=== PATIENT | female | born 1960 | race Caucasian/White ===

== ENCOUNTER 2023-08-10 10:05 | Day surgery (SDC) | payer BC, OTHER ==
[2023-08-10] MEDS ORDERED: Lactated Ringers 1,000 ML IV ONE ×2 (10:13→12:37)
[2023-08-10] MEDS: Lactated Ringers 1,000 ML IV SCH (10:17)
[2023-08-10 10:43] VITALS: RESP 18
[2023-08-10] MEDS ORDERED: Versed 2 MG/2 ML Injection ONE (11:49)
[2023-08-10] MEDS ORDERED: DIPRIVAN 200 MG/20 ML IV ONE ×3 (11:49→12:30)
[2023-08-10 13:34] VITALS: O2SAT 97
[2023-08-10 13:54] VITALS: BP 138/85; PULSE 82; TEMP 97.2
--- NOTE | 2023-08-19 08:59 | OP ---
PROCEDURE DATE/TIME: 08/10/2023 1149 PREOPERATIVE DIAGNOSIS: Screening/surveillance colonoscopy. POSTOPERATIVE DIAGNOSIS: Multiple colorectal polyps, diverticulosis with focal diverticulitis. PROCEDURE: Colonoscopy. PROCEDURE PERFORMED BY: Samantha Mendoza M.D. COMPLICATIONS: None. ESTIMATED BLOOD LOSS: Minimal. ANESTHESIA: MAC. SPECIMEN: Semi-sessile cecal polyp, cecal polyp, lipomatous mass (ascending colon), hepatic flexure polyp, additional hepatic flexure polyps x2 and rectal polyp. HISTORY: This is a 63-year-old patient who presents for screening/surveillance colonoscopy. Risks, benefits and alternatives have been discussed with her in detail preoperatively. She understands the procedure, the risks, benefits and alternatives and would like to proceed. All of her questions were answered to her satisfaction. She has underwent a bowel prep and did well with it. DESCRIPTION OF PROCEDURE: She was then brought back to the endoscopy suite, laid in the left lateral decubitus position. A complete time out was performed. First a rectal exam was done. I did not palpate or see any visible masses or any findings of concern here. The scope was then gently inserted and advanced to the level of the cecum. The patient does have diverticulosis and in the cecum polyps were identified. I also identified the appendiceal orifice as well as ileocecal valve. We then irrigated. Overall her prep was satisfactory. She did have some stool in the colon and we visualized at least 90% of the mucosa but very small or flat lesions could be missed due to imperfect prep. The polyps were identified and removed as follows: A semi-sessile cecal polyp approximately 1 cm was removed with a cold snare and cold biopsy forceps in entirety and sent to pathology. A semi-pedunculated 3 mm cecal polyp was removed with hot biopsy forceps, an ascending colon lipomatous mass that was about 1.5 to 2 cm that looked very soft and consistent with a lipoma was attempted to be biopsied biopsying the overlying mucosa. The overlying mucosa looked normal and again this felt very soft and looks benign. There was a hepatic flexure semi-pedunculated polyp approximately 5 mm and a second polyp that was similar approximately 5 mm both taken with cold snare. There were two additional hepatic flexures that were smaller about 2 to 3 mm taken in entirety with cold biopsy forceps and then there was a semi-pedunculated rectal polyp about 6 x 8 mm taken with cold snare. All sites were resected in entirety. Everything was hemostatic. The patient tolerated the procedure very well. There were no immediate complications. I have reviewed all the sites and I am happy with the excision here. Please note that as we withdrew the scope, we did notice that one of the diverticula appeared to be inflamed this looked to be focal at one diverticula site. I did discuss this with the patient postoperatively. She is not having any pain but we did decide to place her on antibiotics due to the focal acute diverticulitis that was noted. Other than this, there were no other findings on the colonoscopy except as noted. The patient tolerated the procedure very well. There were no immediate complications. She will be following up with me as an outpatient. Colonoscopy interval to be determined with final pathology.
== END 2023-08-10 14:25 | disposition home or self-care (01) ==
LOC: SDC 10:05
PROVIDERS: ATTEND Surgery
DX: Z12.11 Encounter for screening for malignant neoplasm of colon (principal); K57.30 Diverticulosis of large intestine without perforation or abscess without bleeding; E11.9 Type 2 diabetes mellitus without complications; D12.7 Benign neoplasm of rectosigmoid junction; D12.0 Benign neoplasm of cecum; D12.3 Benign neoplasm of transverse colon
CPT/HCPCS: 82947; J2250; J2704

== ENCOUNTER 2024-03-14 09:52 | Day surgery (SDC) | payer BC ==
[~2024-03-14 09:52] MED LIST: Lactated Ringers 1,000 ML IV ONE
[2024-03-14] MEDS: Lactated Ringers 1,000 ML IV SCH (09:55)
[2024-03-14 10:15] VITALS: RESP 18
[2024-03-14] MEDS ORDERED: Xylocaine-Mpf 2% 5 Ml Vial ONE (12:15)
[2024-03-14] MEDS ORDERED: DIPRIVAN 200 MG/20 ML IV ONE ×3 (12:16→13:30)
[2024-03-14 14:04] VITALS: O2SAT 95
[2024-03-14 14:08] VITALS: BP 122/77; PULSE 79; TEMP 97
--- NOTE | 2024-03-17 12:19 | OP ---
SURGERY DATE/TIME: 03/14/2024 [id number] PREOPERATIVE DIAGNOSIS: Irregular sessile cecal polyp at last colonoscopy. POSTOPERATIVE DIAGNOSES: 1) No regrowth of sessile polyp. 2) Additional polyps identified below. 3) Diverticulosis. 4) Minimal hemorrhoidal disease. 5) Ascending colon lipoma. PROCEDURE: Colonoscopy with cold forceps polypectomy of appendiceal orifice and hot forceps of hepatic flexure polyp; and biopsy, ascending colon lipoma. SURGEON: Samantha Mendoza MD ANESTHESIA: MAC. ESTIMATED BLOOD LOSS: Minimal. COMPLICATIONS: None. SPECIMENS: Appendiceal orifice polyp, hepatic flexure polyp, ascending lipoma. INDICATIONS: This is a patient who presents after having a piecemeal polypectomy of a semi-sessile polyp in the cecum that had an irregular border, and she is here for short interval surveillance. Her H and P and consent have been reviewed with her and confirmed. She understands the risks, benefits, and alternatives to the procedure. She has done her prep, and she would like to proceed. All questions have been answered to her satisfaction. DESCRIPTION OF PROCEDURE AND FINDINGS: She was then brought back to the endoscopy suite, laid in the left lateral decubitus position. A complete time-out was performed. First, a rectal inspection and then a rectal exam was done. She does have mild hemorrhoidal disease. The scope was then inserted and gently advanced to the level of the cecum. In the cecum, the appendiceal orifice and the ileocecal valve were both identified. Overall, the prep was satisfactory. In the cecum, I did not see any residual polyp or scar. She did have a very tiny, subtle raised polypoid area right at the appendiceal orifice which we removed completely with the forceps and sent to Pathology. No other concerning findings in the cecum and no sign of regrowth, and at this time, we then carefully withdrew the scope, taking a good circumferential look. She has a known lipoma in the ascending colon. I was able to take a nice biopsy of this. This does look lipomatous, and it is stable in size. It is about 1 x 1.5 to 2 cm in size. It is not obstructing, and it looks very soft and benign. The overlying mucosa looks normal. On biopsy, it does appear to be fatty deep within, and it is very soft. This was hemostatic, the polypectomy site was hemostatic, and then we continued to withdraw our scope. I did identify 1 additional small polyp. This is about 2 to 3 mm in the hepatic flexure, taken in entirety with hot forceps and sent to Pathology. Outside of this, there were no other polyps identified. She does have diverticulosis which is most prominent in the sigmoid colon, but this extends throughout the left colon and even into the transverse colon as well with multiple pockets, and then the scope was able to be completely removed. The patient tolerated the procedure well. No immediate complications. We will await her pathology report and plan for another colonoscopy in 3 years. I have discussed her findings with her nurses as well postoperatively, and she will be seeing me as an outpatient.
== END 2024-03-14 14:20 | disposition home or self-care (01) ==
LOC: SDC 09:52
PROVIDERS: ATTEND Surgery
DX: Z12.11 Encounter for screening for malignant neoplasm of colon (principal); E11.9 Type 2 diabetes mellitus without complications; K62.1 Rectal polyp; D12.1 Benign neoplasm of appendix; D12.2 Benign neoplasm of ascending colon; D12.3 Benign neoplasm of transverse colon; K57.30 Diverticulosis of large intestine without perforation or abscess without bleeding; K64.9 Unspecified hemorrhoids
CPT/HCPCS: 82947; J2704